=== PATIENT | female | born 1975 | race Caucasian/White ===

== ENCOUNTER 2023-08-15 08:02 | Inpatient (IN) | payer SELFPAY ==
[2023-08-15] MEDS ORDERED: Boostrix 0.5 ML (Tdap) VIAL (>/=7 yrs of age) ONE (08:23)
[2023-08-15 08:50] LABS: #Basophils Less than 0.03 10x3/uL (0.0-0.2); %Basophils 0.3 % (0.0-1.0); %Eosinophils 4.5 % (0.0-10.0); %Lymphocytes 23.5 % (21.0-51.0); %Monocytes 7.8 % (0.0-10.0); %Neutrophils 63.7 % (42.0-75.0); Hematocrit 32.1 % (36.0-47.0); Hemoglobin 11.4 g/dL (12.0-16.0); Mean Corpuscular HGB CONC 35.5 g/dL (32.0-36.0); Mean Corpuscular Hemoglobin 32.5 pg (27.0-31.0); Mean Corpuscular Volume 91.5 fL (78.0-98.0); Platelet Count 233 10x3/uL (130-400); RBC Distribution Width 12.1 % (11.5-14.5); Red Blood Cell (RBC) Count 3.51 mill/uL (4.20-5.40)
[2023-08-15 09:07] LABS: ALT (SGPT) 39 U/L (8-55); AST (SGOT) 35 U/L (5-34); Albumin 3.1 g/dL (3.5-5.0); Alkaline Phosphatase 49 U/L (40-110); Anion Gap 14 mmol/L (10-20); BUN (Urea Nitrogen) 8 mg/dL (7.0-18.7); Bilirubin, Total 0.3 mg/dL (0.2-1.2); Calc. Creatinine Clearance 0 mL/min (70-130); Carbon Dioxide 20 mmol/L (22-29); Chloride 107 mmol/L (98-107); Estimated GFR 108; Globulin 3.2 g/dL (2.4-3.5); Glucose 92 mg/dL (70-105); Potassium 3.7 mmol/L (3.5-5.1); Protein, Total 6.3 g/dL (6.0-8.3); Sodium 137 mmol/L (136-145)
[2023-08-15] MEDS ORDERED: Nicotine 14 MG PATCH ONE (09:15)
[2023-08-15] MEDS ORDERED: Morphine 4 MG/ML VIAL ONE (09:44)
[2023-08-15] MEDS ORDERED: Ondansetron PF 4 MG/2 ML Vial SLOW IVP PRN (10:16)
[2023-08-15] MEDS ORDERED: [UNRECOGNIZED DRUG - REMARK] FS PRN (10:30)
[2023-08-15] MEDS ORDERED: Ampicillin/Sulbactam 1.5 GM VIAL ONE (12:25)
[2023-08-15] MEDS ORDERED: Sodium Chloride 0.9% 100 ML ONE ×2 (12:26→12:29)
[2023-08-15] MEDS: TETANUS, DIPHTHERIA TOX,ADULT (TDVAX) 0.5 ML VIAL IM ONE (13:53)
[2023-08-15 14:04] VITALS: BMI 23.8
[2023-08-15] MEDS: Morphine 2 MG/ML VIAL SLOW IVP PRN (14:07)
[2023-08-15] MEDS ORDERED: Midazolam HCl 2 mg/2 ml Vial ONE (16:34)
[2023-08-15] MEDS ORDERED: fentaNYL 50 mcg/mL 1 mL Vial SLOW IVP PRN (17:07)
[2023-08-15] MEDS ORDERED: Acetaminophen 325 MG TAB PO PRN (17:07)
[2023-08-15] MEDS ORDERED: Bisacodyl 10 MG SUPP PR PRN (17:07)
[2023-08-15] MEDS ORDERED: Communication Order-Pharmacy FS SCH (17:15)
[2023-08-15] MEDS ORDERED: Bupivacaine PF 0.5% 30 ML VIAL ONE (17:40)
[2023-08-15] MEDS ORDERED: Bacitracin Zinc Ointment 30 gm TUBE ONE (17:40)
[2023-08-15] MEDS ORDERED: Vancomycin 1 GM VIAL ONE (17:40)
[2023-08-15] MEDS ORDERED: fentaNYL PF 100 MCG/2 ML SYRINGE ONE (17:49)
[2023-08-15] MEDS ORDERED: PROPOFOL 20 ML ONE (17:49)
[2023-08-15] MEDS ORDERED: Dexamethasone 20 MG/5 ML VIAL ONE (18:22)
[2023-08-15] MEDS ORDERED: Ondansetron PF 4 MG/2 ML Vial ONE (18:22)
[2023-08-15] MEDS ORDERED: Ondansetron HCl/PF 4 MG/2 ML Vial IVP PRN (18:54)
[2023-08-15] MEDS ORDERED: Promethazine HCl 25 MG/ML VIAL IM PRN (18:54)
[2023-08-15] MEDS ORDERED: fentaNYL 50 mcg/mL 1 mL Vial ONE ×3 (18:56→20:03)
[2023-08-15] MEDS ORDERED: Aspirin 81 mg Enteric Coated Tablet PO SCH (21:00)
[2023-08-15] MEDS: HYDROcodone/Acetaminophen 10/325 mg Tablet PO PRN (21:46)
[2023-08-15] MEDS: Morphine 4 MG/ML VIAL SLOW IVP PRN (21:47)
[2023-08-15] MEDS: Aspirin 81 mg Enteric Coated Tablet PO SCH (21:48)
[2023-08-15] MEDS: Ampicillin/Sulbactam 1.5 GM in Sodium Chloride 0.9% 100 ML IVPB SCH (23:32)
[2023-08-16 05:41] LABS: #Basophils Less than 0.03 10x3/uL (0.0-0.2); #Eosinphils Less than 0.03 10x3/uL (0.0-0.7); %Basophils 0.1 % (0.0-1.0); %Lymphocytes 7.4 % (21.0-51.0); %Monocytes 3.1 % (0.0-10.0); %Neutrophils 89.2 % (42.0-75.0); Hemoglobin 13.2 g/dL (12.0-16.0); Mean Corpuscular HGB CONC 34.7 g/dL (32.0-36.0); Mean Platelet Volume 11.3 fL (7.4-10.4); Platelet Count 277 10x3/uL (130-400); RBC Distribution Width 11.9 % (11.5-14.5); Red Blood Cell (RBC) Count 4.13 mill/uL (4.20-5.40)
[2023-08-16] MEDS: TETANUS, DIPHTHERIA TOX,ADULT (TDVAX) 0.5 ML VIAL IM ONE (07:59)
[2023-08-16] MEDS ORDERED: Butorphanol Tartrate 1 MG/ML VIAL SLOW IVP PRN (18:51)
[2023-08-16] MEDS: Ketorolac Tromethamine 30 MG (1 mL) VIAL IVP PRN (20:28)
[2023-08-16] MEDS: Lorazepam 2 MG/ML VIAL SLOW IVP PRN (20:28)
[2023-08-17] MEDS ORDERED: Sodium Bicarbonate 2.5 MEQ/5 ML SDV ONE (13:55)
[2023-08-17] MEDS ORDERED: Lidocaine 1% PF 5 ML VIAL ONE (13:55)
[2023-08-18] MEDS: cefTRIAXone\\ROCEPHIN 1 GM in Sodium Chloride 0.9% 100 ML IVPB SCH (15:12)
[2023-08-19] MEDS ORDERED: Midazolam HCl 2 mg/2 ml Vial ONE (09:25)
[2023-08-19] MEDS ORDERED: PROPOFOL 20 ML ONE (10:12)
[2023-08-19] MEDS ORDERED: Lidocaine 1% PF 5 ML VIAL ONE (10:12)
[2023-08-19] MEDS ORDERED: Ondansetron PF 4 MG/2 ML Vial ONE (10:12)
[2023-08-19] MEDS ORDERED: fentaNYL PF 100 MCG/2 ML SYRINGE ONE (10:12)
[2023-08-19] MEDS ORDERED: Ketorolac Tromethamine 30 MG (1 mL) VIAL ONE (10:12)
[2023-08-19] MEDS ORDERED: Dexamethasone 4 mg/ml Vial ONE (10:12)
[2023-08-19] MEDS ORDERED: Bupivacaine PF 0.5% 30 ML VIAL ONE (10:30)
[2023-08-19] MEDS ORDERED: Meperidine HCl/PF 25 MG (1 mL) VIAL ONE (11:13)
[2023-08-19] MEDS ORDERED: HYDROcodone/Acetaminophen 7.5/325 mg Tablet PO PRN (13:10)
[2023-08-19] MEDS: Morphine 4 MG/ML VIAL SLOW IVP PRN (16:12)
[2023-08-19] MEDS: Butorphanol Tartrate 1 MG/ML VIAL SLOW IVP SCH (16:13)
[2023-08-20] MEDS: traMADol HCl 50 MG TAB PO PRN (12:08)
[2023-08-21 08:24] VITALS: BP 122/73; TEMP 98.1
== END 2023-08-21 13:50 | disposition home or self-care (01) | DRG 506 ==
LOC: ERS 08:02 → SURG B 13:11
PROVIDERS: ADMIT Orthopaedic Surgery; ATTEND Orthopaedic Surgery
PROC: 0R9V0ZZ Drainage of Left Metacarpophalangeal Joint, Open Approach (ICD-10-PCS; principal; 2023-08-15)
PROC: 02HV33Z Insertion of Infusion Device into Superior Vena Cava, Percutaneous Approach (ICD-10-PCS; 2023-08-17)
PROC: B5181ZA Fluoroscopy of Superior Vena Cava using Low Osmolar Contrast, Guidance (ICD-10-PCS; 2023-08-17)
PROC: 0RBV0ZZ Excision of Left Metacarpophalangeal Joint, Open Approach (ICD-10-PCS; 2023-08-19)
DX: M00.9 Pyogenic arthritis, unspecified (principal); L03.114 Cellulitis of left upper limb; L02.512 Cutaneous abscess of left hand; F41.9 Anxiety disorder, unspecified; F32.A Depression, unspecified; Z79.899 Other long term (current) drug therapy; Z98.890 Other specified postprocedural states; Z79.2 Long term (current) use of antibiotics
CPT/HCPCS: 36415; 36569; 76937; 77001; 80053; 83605; 85025; 86141; 87070; 87077; 87205; 90471; 90715; 96374; 96375; C1751; J0295; J0665; J0696; J1100; J1885; J2060; J2175; J2250; J2270; J2272; J2405; J2704; J3010; J3370; J3490